=== PATIENT | female | born 1980 | race Two or more races ===

== ENCOUNTER → 2021-07-16 | Outpatient (CLI) | payer OTHER ==
[2021-07-09 16:54] VITALS: BP 118/73
--- NOTE | 2021-07-16 16:36 | RAD ---
EXAM: Pelvic sonogram. HISTORY: Dysfunctional uterine bleeding. TECHNIQUE: Sonographic imaging of the pelvis was performed. COMPARISON: None. FINDINGS: The uterus measures 8.3 x 6.3 x 4.9 cm. The endometrial stripe measures 1.2 cm in thickness . The ovaries are normal in size and demonstrate normal blood flow. There are small bilateral ovarian follicles. There is no pelvic free fluid. There are nabothian cysts within the cervix. IMPRESSION: 1. Prominent endometrial stripe. This is within normal limits in thickness for the premenopausal stat us of patient. Follow-up imaging in a different phase of the menstrual cycle may be useful given a hi story of dysfunctional uterine bleeding. 2. Nabothian cysts within the cervix. Electronically signed by: Estefany Pierce MD (07/16/2021 4:34 PM) [id number]
== END ==
LOC: US 15:14
PROVIDERS: ATTEND Nurse Practitioner Family
DX: N88.8 Other specified noninflammatory disorders of cervix uteri (principal); N83.02 Follicular cyst of left ovary; N83.01 Follicular cyst of right ovary; N93.8 Other specified abnormal uterine and vaginal bleeding
CPT/HCPCS: 76830; 76856